=== PATIENT | female | born 1965 | race Caucasian/White ===

== ENCOUNTER 2017-06-09 16:58 | Emergency (ER) | payer OTHER ==
[2017-06-09 17:14] VITALS: BP 122/72
--- NOTE | 2017-06-09 18:08 | ED Physician Documentation ---
PD HPI URI - Stated complaint Stated Complaint: SORE THROAT/COUGH - Chief complaint Chief Complaint: Heent - History obtained from History obtained from: Patient - History of Present Illness Timing - onset: Other (Just got back from a cruise from [place], sick for a week with cough productive of sputum and sore throat. No fevers or shortness of breath.) Review of Systems Constitutional: denies: Fever, Chills Nose: denies: Rhinorrhea / runny nose Throat: reports: Sore throat Respiratory: reports: Cough. denies: Dyspnea PD PAST MEDICAL HISTORY - Past Medical History Past Medical History: No - Past Surgical History Past Surgical History: Yes HEENT: Tonsil/Adenoidectomy - Present Medications Home Medications: Ambulatory Orders Medication Instructions Recorded Confirmed Albuterol Sulfate [Proventil Hfa 1 - 2 puffs IH Q4H PRN #1 06/09/17 Inhaler] hfa.[email or web address].ad guaiFENesin/CODEINE [Robitussin AC] 5 - 10 ml PO Q6H PRN #120 ml 06/09/17 - Allergies Allergies/Adverse Reactions: Allergies Allergy/AdvReac Type Severity Reaction Status Date / Time No Known Drug Allergies Allergy Verified 06/09/17 17:13 - Social History Does the pt smoke?: No Smoking Status: Never smoker Does the pt drink ETOH?: No Does the pt have substance abuse?: No - Immunizations Immunizations are current?: Yes - POLST Patient has POLST: No PD ED PE NORMAL - Vitals Vital signs reviewed: Yes - General General: Alert and oriented X 3, No acute distress - HEENT HEENT: PERRL, EOMI, Pharynx benign (no tonsils) - Neck Neck: Supple, no meningeal sign, No bony TTP - Cardiac Cardiac: RRR, No murmur - Respiratory Respiratory: No respiratory distress, Clear bilaterally - Abdomen Abdomen: Non tender - Neuro Neuro: Alert and oriented X 3, Normal speech - Psych Psych: Normal mood, Normal affect Results - Vitals Vitals: Vital Signs - 24 hr 06/09/17 17:12 Temperature 36.6 C Heart Rate 76 Respiratory 16 Rate Blood Pressure 122/72 O2 Saturation 99 - Labs Labs: Laboratory Tests 06/09/17 17:50 Group A Strep Rapid Negative - Rads (name of study) 2v chest Radiology: EMP read contemporaneously (platelike atalectasis L lung base) Departure - Departure Disposition: 01 Home, Self Care Clinical Impression: Viral syndrome Condition: Good Record reviewed to determine appropriate education?: Yes Instructions: ED Viral Syndrome Prescriptions: Albuterol Sulfate [Proventil Hfa Inhaler] 1 - 2 puffs IH Q4H PRN #1 hfa.[email or web address].ad PRN Reason: Cough guaiFENesin/CODEINE [Robitussin AC] 5 - 10 ml PO Q6H PRN #120 ml PRN Reason: Cough Comments: Call your doctor to arrange a follow-up appointment, make the next available appointment. In the interim, return anytime if worse or if new symptoms develop.
--- NOTE | 2017-06-09 18:54 | XRAY Preliminary Report ---
Exam: XR CHEST 2 VIEW X-RAY IMPRESSION: Platelike atelectasis or scarring left anterior lung base. [facility] SITE ID: [id number]
--- NOTE | 2017-06-09 19:04 | XRAY Report ---
EXAM: CHEST RADIOGRAPHY EXAM DATE: 06/09/2017 06:37 PM. CLINICAL HISTORY: Cough. COMPARISON: None. TECHNIQUE: 2 views. FINDINGS: Lungs/Pleura: Platelike atelectasis or scarring in the lingula. Right lung is clear. Normal lung volu mes. No vascular congestion, effusion nor pneumothorax. Mediastinum: Heart and mediastinal contours are unremarkable. Other: Kyphoscoliosis. IMPRESSION: Platelike atelectasis or scarring left anterior lung base. [facility] Referring Provider Line: [phone] SITE ID: [id number]
== END 2017-06-09 19:01 | disposition home or self-care (01) ==
LOC: ED 16:58
DX: B34.9 Viral infection, unspecified (principal)
CPT/HCPCS: 71046; 87070; 87430; 99283

== ENCOUNTER 2022-04-26 18:36 | Outpatient (CLI) | payer OTHER ==
--- NOTE | 2022-04-27 03:05 | Ultrasound Report ---
PROCEDURE: Pelvic w/Transvaginal INDICATIONS: PELVIC PAIN TECHNIQUE: Real-time scanning was performed of the pelvic organs, with image documentation. Additional endovagi nal scanning was necessary due to incomplete visualization of the adnexal and endometrial structures by transabdominal scanning. COMPARISON: None. FINDINGS: Uterus: Uterus is retroverted and measures 5.7 x 3.4 cm. Endometrium measures up to 0.6 cm in thickn ess. Ovaries: The right ovary measures 3 x 1.5 x 2.9 cm, with a calculated ovarian volume of 6.5 cc. The left ovary measures 2 x 1.6 x 2 cm, with a calculated ovarian volume of 3.3 cc. The ovaries have a normal sonographic appearance. Less than 12 follicles can be seen in each ovary. There is a thick-w alled cyst within the right ovary measuring up to 1.1 x 1.1 x 0.8 cm. There is a hypoechoic oval stru cture in the left ovary measuring up to 1.3 x 1 x 0.8 cm. No internal vascularity and color Doppler i nterrogation. There is an anechoic left paraovarian cyst measuring up to 1.5 x 1.4 x 1.1 cm. Other: No pathologic free abdominal or pelvic fluid. IMPRESSION: 1. Thick-walled cystic lesion in the right ovary and oval hypoechoic solid-appearing structure within the left ovary are nonspecific. Given postmenopausal status, consider further evaluation with a pelv ic MRI for characterization. Reviewed by: Oseas Bhandari MD on 04/27/2022 3:03 AM [facility] Approved by: Oseas Bhandari MD on 04/27/2022 3:03 AM PST Station ID: [id number]
== END 2022-04-26 18:37 | disposition home or self-care (01) ==
LOC: DI 18:36
PROVIDERS: ATTEND Obstetrics & Gynecology
DX: N83.201 Unspecified ovarian cyst, right side (principal); Z78.0 Asymptomatic menopausal state

== ENCOUNTER 2022-05-10 08:39 | Outpatient (CLI) | payer OTHER | END 2022-05-10 08:40 | disposition home or self-care (01) | LOC: LAB 08:39 | PROVIDERS: ATTEND Obstetrics & Gynecology | DX: N83.291 Other ovarian cyst, right side (principal) | CPT/HCPCS: 36415; 86304 ==